=== PATIENT | female | born 1965 ===

== ENCOUNTER 2023-07-30 14:20 | Emergency (ER) | payer OTHER ==
[2023-07-30] MEDS: diphenhydrAMINE 50 MG Cap PO ONE (15:15)
== END 2023-07-30 15:25 | disposition home or self-care (01) ==
LOC: LB.ED 14:20
DX: S10.96XA Insect bite of unspecified part of neck, initial encounter (principal); E03.9 Hypothyroidism, unspecified; Z79.899 Other long term (current) drug therapy; Z88.8 Allergy status to other drugs, medicaments and biological substances; W57.XXXA Bitten or stung by nonvenomous insect and other nonvenomous arthropods, initial encounter
CPT/HCPCS: 36415; 84443; 99283; A9270-GY